=== PATIENT | female | born 1995 | race Caucasian/White ===

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

== ENCOUNTER 2017-03-23 13:11 | Emergency (ER) | payer BC ==
[2017-03-23 15:54] VITALS: BP 141/87
--- NOTE | 2017-03-23 16:33 | UC ---
FLU HPI - HPI Summary HPI Summary: headache x 24 hour, temporal. no photophobia, no vision changes body ache, upper shoulders, low back lost voice today pt with sore throat and cough + nausea without vomiting + chills + diarrhea - no blood, black no analgesia roommate + flu pt is on basketball team with sick teammates no flu vaccine this year LMP pt's medications reviewed this visit - History of Current Complaint Chief Complaint: UCGeneralIllness Stated Complaint: COUGH, CHILLS, ACHES Time Seen by Provider: 03/23/17 16:07 Hx Obtained From: Patient Hx Last Menstrual Period: 02/26/17 Onset/Duration: Gradual Onset, Lasting Days Severity Currently: Mild Severity Initially: Moderate Pain Intensity: 4 Pain Scale Used: 0-10 Numeric Associated Signs & Symptoms: Positive: Myalgia, Cough, Sore Throat, Nasal Congestion, Headache, Vomiting, Diarrhea - Allergy/Home Medications Allergies/Adverse Reactions: Allergies Allergy/AdvReac Type Severity Reaction Status Date / Time No Known Allergies Allergy Verified 03/23/17 15:52 PMH/Surg Hx/FS Hx/Imm Hx Previously Healthy: Yes - Surgical History Surgical History: Yes Surgery Procedure, Year, and Place: [place] Teeth, 2014 - Family History Known Family History: Positive: None Negative: Diabetes - Social History Occupation: Student Lives: Dormitory/Roommates Alcohol Use: Rare Substance Use Type: None Smoking Status (MU): Never Smoked Tobacco - Immunization History Most Recent Influenza Vaccination: October 2015 Review of Systems Constitutional: Chills, Other - sweats Eyes: Negative ENT: Nasal Discharge, Sinus Congestion Respiratory: Cough Cardiovascular: Negative Gastrointestinal: Negative Genitourinary: Negative Motor: Negative Neurovascular: Negative Musculoskeletal: Arthralgia, Myalgia Neurological: Headache All Other Systems Reviewed And Are Negative: Yes Physical Exam Triage Information Reviewed: Yes Appearance: Well-Appearing, Well-Nourished, Other: - intermittent cough Vital Signs: Initial Vital Signs Temp 99.1 F 03/23/17 15:49 Pulse 78 03/23/17 15:49 Resp 16 03/23/17 15:49 BP 141/87 03/23/17 15:49 Pulse Ox 99 03/23/17 15:49 Vital Signs Reviewed: Yes Eye Exam: Normal Eyes: Positive: Conjunctiva Clear ENT Exam: Normal ENT: Positive: Pharyngeal erythema, Nasal congestion, TMs normal, Other - TM x2 clear no fluid turbinates boggy + pnd uvula midline no erythema, no exudate Dental Exam: Normal Neck exam: Normal Neck: Positive: Supple, Nontender, No Lymphadenopathy Respiratory Exam: Normal Respiratory: Positive: Chest non-tender, Lungs clear, Normal breath sounds, No respiratory distress, No accessory muscle use Cardiovascular Exam: Normal Cardiovascular: Positive: RRR, No Murmur, Pulses Normal Abdominal Exam: Normal Abdomen Description: Positive: Nontender, No Organomegaly, Soft Bowel Sounds: Positive: Present Musculoskeletal Exam: Normal Musculoskeletal: Positive: Strength Intact, ROM Intact, Other: - neck supple, FAROM Neurological Exam: Normal Neurological: Positive: Alert, Muscle Tone Normal Psychological Exam: Normal Psychological: Positive: Normal Response To Family Skin Exam: Normal Flu Course/Dx - Course Course Of Treatment: pt college student, collegiate athlete. several exposures to flu. pt with body aches,headache, cough, sore throat. Pt with neg flu. will start tamiflu prophylaxis. d/w pt secretion precaution. rest. hydrate. motrin/apap. class and sports note. pt comfortable and in agreement with plan. return precautions discussed - Differential Dx/Diagnosis Provider Diagnoses: influenza-like illness. influenza exposure Discharge - Discharge Plan Condition: Stable Disposition: HOME Prescriptions: Oseltamivir Phosphate [Tamiflu] 75 mg PO DAILY #10 capsule Patient Education Materials: Influenza (ED) Forms: *Gen. Provider Communication, *Physical Education Release, *Work Release Referrals: No Primary Care Phys,NOPCP [Primary Care Provider] - Additional Instructions: - Stay well hydrated. Drink plenty of non-alcoholic, non-caffinated beverages. - Alternate ibuprofen (Advil, Motrin) 600mg and Tylenol every 3 hours for pain or fever. Take with food. Do NOT take for more than 4-5 days. - These infections are spread by secretions - do NOT share eating or drinking utensils - clean items you share with other people such as cell phones, computer mouse, TV remote, computer tablets, etc. After you have taken Tamiflu for 3 days, change your toothbrush and your pillowcase. - get plenty of restful sleep - humidify the air in the room where you sleep - boil water, run a hot steam shower, vaporizer, cups of water by heat register - okay to take over the counter decongestant and cough medication. - get plenty of restful sleep - contact the student health center, return here, or go to the emergency department with questions or concerns
[2017-03-23] MEDS ORDERED: Acetaminophen TAB* 325 MG PO ONE (16:34)
== END 2017-03-23 16:45 | disposition home or self-care (01) ==
LOC: UCCORT 13:11
DX: R52 Pain, unspecified (principal); R51 Headache; R05 Cough; J02.9 Acute pharyngitis, unspecified; Z20.828 Contact with and (suspected) exposure to other viral communicable diseases
CPT/HCPCS: 87502; 99212; A9270-GY; G0463